=== PATIENT | female | born 1970 | race Caucasian/White ===

== ENCOUNTER 2023-06-19 17:29 | Emergency (ER) | payer BC, SELFPAY ==
[2023-06-19 17:30] VITALS: BP 122/94; PULSE 97; RESP 14; TEMP 35.6; O2SAT 100; BMI 32.4
--- NOTE | 2023-06-19 17:40 | EDS_ITS ---
HPI History of Present Illness Chief Complaint: Chest Pain Informant: patient Narrative Narrative: Presents by private vehicle after driving information 4 hours to visit her mom. 2 hours from driving and felt pressure in her chest mild dyspnea. No leg swelling or cramping. History of hypertension denies tobacco. Father with his first ME at age of 65. No history of PE or DVT. No cardiac history. Symptoms currently subsiding. Patient not on any hormone therapy. Prior Similar Symptoms: No CVD Risk Factors: Positive for Hypertension; Negative for Diabetes, Hypercholesterolemia, Family History 1' </=55 or Smoking PFSH [facility] Home Medications omeprazole 20 mg capsule,delayed release 20 mg PO DAILY 06/19/23 [History Last Taken Unknown] potassium chloride 20 mEq tablet,extended release 20 meq PO DAILY #7 tabs 06/19/23 [Rx Last Taken Unknown] Allergy/AdvReac Type Severity Reaction Status Date / Time azithromycin Allergy Intermediate Rash Verified 06/19/23 17:34 Penicillins Allergy Intermediate Rash Verified 06/19/23 17:34 ROS ROS ED Constitutional Constitutional ED: Denies chills, fever(s) or sweats Eyes Eyes: Denies change in vision ENT ENT ED: Denies dysphagia or sore throat Cardiovascular Cardiovascular: Reports chest pain; Denies leg edema, palpitations or racing heartbeat Respiratory/Chest Respiratory/Chest: Reports dyspnea; Denies cough or dyspnea on exertion Gastrointestinal Gastrointestinal: Denies abdominal pain, diarrhea, nausea or vomiting Genitourinary Genitourinary ED: Denies dysuria, hematuria or urinary frequency Musculoskeletal Musculoskeletal: Denies back pain, extremity pain or neck pain Integumentary Denies rash or wounds Neurologic Neurologic: Denies headache(s), paresthesias or weakness EXAM Physical Exam Const Vital Signs: 06/19/23 17:30 06/19/23 17:47 06/19/23 17:52 Temperature 96.1 F L Temperature Source Temporal Pulse Rate 97 Respiratory Rate 14 Respiratory Effort Normal Blood Pressure 122/94 H Blood Pressure Mean 103 Pulse Ox 100 Oxygen Delivery Method Room Air 06/19/23 18:30 06/19/23 19:00 06/19/23 19:14 Temperature 97.6 F L Temperature Source Pulse Rate 80 81 85 Respiratory Rate 18 12 17 Respiratory Effort Blood Pressure 115/85 H 131/88 H 128/70 H Blood Pressure Mean 95 102 89 Pulse Ox 97 95 96 Oxygen Delivery Method Room Air Room Air Positive well nourished and well developed General Appearance ED: well developed and NAD HEENT Reports moist mucous membranes normocephalic and atraumatic Eyes PERRL, EOMs intact bilaterally and conjunctivae normal General Eye ED: Yes normal appearance of both eyes Neck no lymphadenopathy and supple General: Negative for tenderness Chest Wall Chest: Negative for tenderness Resp normal respiratory effort and normal air movement Effort and Inspection: symmetric chest movement; Negative for respiratory distress Cardio regular rate, regular rhythm and no murmurs Peripheral Pulses: pulses 2+ throughout GI normal to inspection, nondistended, normoactive bowel sounds and non-tender Palpation: Negative for guarding or rebound tenderness present Back/Spine no CVA tenderness and no thoracic nor lumbar tenderness Extremity normal to inspection Extremity Narrative: Pulses intact x 4. No leg swelling or cramping. General Extremety ED: Negative for edema or tenderness General Extremity: Negative for edema Neuro oriented x3 and no sensory deficits noted Sensorium / Orientation: awake and alert Skin no rashes or lesions noted and no wounds MDM MDM MDM Narrative Medical decision making narrative: Interventions / MDM: Differential diagnosis: Atypical chest pain., Electrolyte abnormalities Diagnosis considered but do not suspect: Pulm embolism however low risk Wells criteria with a negative D-dimer. ACS however negative workup per algorithm. My EKG interpretation: Sinus rhythm 86, no ST or T wave changes. Low voltage. Corrected QTc by myself 431. Imaging independently reviewed and interpreted by myself: Chest x-ray 2 views: No acute process. External documents reviewed: N/A Test considered but not ordered:N/A ED course: Patient's EKG no acute findings. Chest pain is resolving. Cardiac workup. She drove in here for hours with mild dyspnea. No leg swelling. Low risk Wells criteria for PE. D-dimer added. 1839: Patient currently symptom-free. D-dimer negative. Hemoglobin 14. Pending results of cardiac enzymes. Chest x-ray two-view was ordered for further evaluation. 1914: Patient remains symptom-free. Troponin returned less than 3. Negative ACS per algorithm. Her potassium returned at 2.6. She is on lisinopril hydrochlorothiazide for years for blood pressure. However did start weight loss injections with second dosing this past Friday. She did have stomach cramping that resolved. Oral potassium in the ED. Will provide 7-day supplement for potassium. Outpatient follow-up and strict return precautions. All questions were answered. Re-evaluation: stable Disposition discussed with patient/family/significant other: Patient and family Case discussed with consulting clinician: N/A This note was generated with [employer] dictation software. It may contain incorrect words, spelling, and punctuation that were not noted in checking the note before signing. Lab Data Attestation: I reviewed the patient's lab results. Labs: Laboratory Results - last 24 hr 06/19/23 17:54 WBC 7.1 RBC 4.76 Hgb 14.2 Hct 42.6 MCV 89.5 MCH 29.8 MCHC 33.3 RDW Std Deviation 41.2 RDW Coeff of Mari 12.6 Plt Count 272 MPV 10.3 Immature Gran % (Auto) 0.100 Neut % (Auto) 61.7 Lymph % (Auto) 30.3 [place] % (Auto) 6.2 Eos % (Auto) 1.0 Baso % (Auto) 0.7 Absolute Neuts (auto) 4.4 Absolute Lymphs (auto) 2.16 Nucleated RBC % 0 D-Dimer Quant (PE/DVT) 0.32 Sodium 139 Potassium 2.6 L* Chloride 102 Carbon Dioxide 31.0 Anion Gap 6 BUN 12 Creatinine 1.02 Estim Creat Clear Calc 75.04 Est GFR (MDRD) Af Amer 73 Est GFR (MDRD) Non-Af 60 BUN/Creatinine Ratio 11.8 Glucose 108 H Calcium 9.3 Troponin I High Sens < 3 L Radiography Diagnostic Testing: Clinical Impression(s) from Imaging Studies Chest X-Ray 06/19/23 18:40 IMPRESSION: No radiographic evidence of acute cardiopulmonary disease. Electronically Signed: Roberto Watters DO at 19:06 EDT Reading Location ID and State: [facility] / [place] Tel [phone], Service support , Discharge Plan Triage Chief Complaint: Chest Pain ED Provider: Kolby Blue Dx/Rx/DC Orders Clinical Impression: Chest pain, Hypokalemia Instructions: ED Chest Pain, Noncardiac, ED Hypokalemia Prescriptions: New potassium chloride 20 mEq tablet extended release 20 meq PO DAILY Qty: 7 0RF No Action omeprazole 20 mg capsule,delayed release(DR/EC) 20 mg PO DAILY Primary Care Provider: Care Physician,No Primary Referrals: Care Physician,No Primary [Primary Care Provider] - Activity Restrictions/Additional Instructions: Cardiac workup negative. Troponin less than 3. D-dimer negative. Your potassium 2.6. Hemoglobin 14.2. White count 7.1. Platelets 272. Take potassium supplements for the next 5 days. This will likely could be secondary to your weight loss injections. Follow-up with your doctor. If your chest pain is not returns or worsens, return to the ED for reevaluation. Disposition Disposition: Home, Self Care
[2023-06-19 18:18] LABS: Absolute Lymphocyte Count 2.16 X10^3/uL (0.83-4.51); Absolute Neutrophil Count 4.4 X10^3/uL (2.0-7.7); Basophil# 0.05 X10^3/uL; Basophil% 0.7 % (0-1); Eosinophil# 0.07 X10^3/uL; Hematocrit 42.6 % (37-47); Hemoglobin 14.2 g/dL (12.0-15.0); Lymphocyte # 2.16 X10^3/ul (0.83-4.51); Lymphocyte % 30.3 % (19-41); Mean Corp Hgb Conc 33.3 g/dL (32-36); Mean Corpuscular Hgb 29.8 pg (27.0-32.0); Mean Corpuscular Volume 89.5 fL (81-99); Mean Platelet Vol. 10.3 fl (6.2-12.0); Monocyte# 0.44 X10^3/uL; Monocyte% 6.2 % (0-10); NRBC Flagged by Analyzer 0 % (0-5); Neutrophil # 4.41 X10^3/uL (2.7-7.7); Neutrophil % 61.7 % (47-70); Platelet Count 272 K/mm3 (150-450); RBC Distribution Width CV 12.6 % (11.6-14.6); RBC Distribution Width SD 41.2 fl (35.1-43.9); Red Blood Count 4.76 M/mm3 (4.2-5.4); White Blood Count 7.1 K/mm3 (4.4-11.0)
[2023-06-19 18:28] LABS: D-Dimer Quantitative (DVT/PE) 0.32 FEU/ug/m (0.27-0.49)
[2023-06-19 18:30] VITALS: BP 115/85; PULSE 80; RESP 18; O2SAT 97
--- NOTE | 2023-06-19 18:40 | RAD_ITS ---
INDICATION: chest pain EXAMINATION/TECHNIQUE: X-RAY - XR Chest 2 Views COMPARISON: FINDINGS: LINES/DEVICES: None. LUNGS: No consolidation, edema or effusion. No pneumothorax. MEDIASTINUM AND CARDIOVASCULAR STRUCTURES: Cardiac silhouette not enlarged. Central airways and mediastinal contour are unremarkable. BONES AND SOFT TISSUES: Degenerative vertebral changes. RAD/Chest PA and Lateral IMPRESSION: No radiographic evidence of acute cardiopulmonary disease. Electronically Signed: Roberto Watters DO at 19:06 EDT ,
[2023-06-19 18:50] LABS: Anion Gap 6 (5-15); BUN 12 mg/dL (7-18); BUN/Creat Ratio 11.8 RATIO (10-20); Calcium,Total 9.3 mg/dL (8.5-10.1); Chloride 102 mmol/L (98-107); Creatinine, Serum 1.02 mg/dL (0.55-1.02); EST Glomerular Filtration Rate 60 mL/min (>60); Est Glom Filt Rate - Afr Amer 73 mL/min (>60); Estimated Creatinine Clearance 75.04 ml/min; Glucose 108 mg/dL (74-106); Potassium 2.6 mmol/L (3.5-5.1); Sodium Level 139 mmol/L (136-145); Troponin-I HS (w/2H Reflex) < 3 pg/mL (3.0-54.0)
[2023-06-19 19:00] VITALS: BP 131/88; PULSE 81; RESP 12; O2SAT 95
[2023-06-19] MEDS: Potassium Chloride Oral Tablet 20 MEQ 40 MEQ PO (19:12)
[2023-06-19 19:14] VITALS: BP 128/70; PULSE 85; RESP 17; TEMP 36.4; O2SAT 96
[2023-06-19 20:01] LABS: Reflex Troponin-HS? (from REC) Y
== END 2023-06-19 19:23 | disposition home or self-care (01) ==
PROVIDERS: Emergency Provider Emergency Medicine; Visit Provider Emergency Medicine
DX: R07.89 Other chest pain (principal); I10 Essential (primary) hypertension; E87.6 Hypokalemia; R06.00 Dyspnea, unspecified; Z79.899 Other long term (current) drug therapy
CPT/HCPCS: 71046; 80048; 84484; 85025; 85379; 93005; 99284